=== PATIENT | male | born 1950 | race Hispanic/Latino ===

== ENCOUNTER 2018-05-01 22:46 | Emergency (ER) | payer OTHER ==
[~2018-05-01] VITALS: Ht 165.1 cm; Wt 97.5 kg
[~2018-05-01 22:46] MED LIST: CYCLOBENZAPRINE10 M1 PO; PERCOCET 5-3251 EACH PO; ROBITUSSIN W/CO10 ML PO; ZITHROMAX Z-PA250 M1 PO
--- NOTE | 2018-05-01 23:36 | ED MVC/FALL/TRAUMA COMPLAINT ---
History of Present Illness General Chief Complaint: Fall Stated Complaint: BIBA WITH A FALL Source: patient, family, EMS Exam Limitations: no limitations Vital Signs & Intake/Output Vital Signs & Intake/Output Vital Signs Date Time Temp Pulse Resp B/P B/P Pulse O2 O2 Flow FiO2 Mean Ox Delivery Rate 05/02 0259 98.2 76 16 135/80 98 Room Air 05/02 0106 98.0 78 16 138/84 97 Room Air 05/01 2320 98.2 76 19 133/82 99 Room Air 05/01 2301 Room Air ED Intake and Output 05/02 0000 05/01 1200 Intake Total Output Total Balance Patient 215 lb Weight Weight Reported by Patient Measurement Method Allergies Coded Allergies: No Known Allergies (02/09/18) Reconcile Medications Azithromycin (Zithromax Z-Ab) 250 MG CAP 1 DP PO AD bronchitis 2 the first day followed by 1 for days 2-5 Cyclobenzaprine HCl 10 MG TABLET 1 TAB PO Q8P PAIN OR SPASM Oxycodone HCl/Acetaminophen (Percocet 5-325 MG Tablet) 5 MG-325 MG TABLET 1-2 TAB PO Q6P PRN PAIN Robitussin AC (Guaifenesin-Codeine Syrup) 10 ML UDC 10 ML PO Q6HR PRN COUGH Triage Note: biba s/p mechanical fall off of 2nd step on ladder. denies headstrike. does not take bloodthinners. c/o of R lower back pain - worse with movement. slight bruising/redness noted to R lower back. Triage Nurses Notes Reviewed? yes Onset: Abrupt Duration: minute(s):, constant, changing over time, continues in ED, getting worse Timing: single episode today Severity: severe Injuries/Fall Location: back Method of Injury: fall Loss of Consciousness: no loss of consciousness HPI: Patient presents for evaluation of injury sustained status post fall while at home prior to arrival. Patient was on a step stool was approximately 2 steps or roughly 3 feet up off the ground when he fell while changing a light bulb. He fell onto concrete stairs. He presents complaining of a constant sharp right flank pain that radiates up the back gets worse with palpation and movement. He denies neck pain. Past History Travel History Traveled to [place] past 21 day No Medical History Any Pertinent Medical History? 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 No Review of Systems Review of Systems Constitutional: Reports: no symptoms. Eyes: Reports: no symptoms. Ears, Nose, Throat, Mouth: Reports: no symptoms. Respiratory: Reports: no symptoms. Cardiovascular: Reports: no symptoms. Gastrointestinal/Abdominal: Reports: no symptoms. Genitourinary: Reports: no symptoms. Musculoskeletal: Reports: see HPI. Skin: Reports: no symptoms. Neurological/Psychological: Reports: no symptoms. All Other Systems: Reviewed and Negative Physical Exam Physical Exam General Appearance: see below Comments: Gen.: Well-nourished, well-developed, no acute respiratory distress. Head: Normocephalic, atraumatic, nontender. Eyes: Normal inspection bilaterally, sandeep, EOMI Ears: Normal inspection bilaterally Nose: Normal inspection Throat/mouth : Moist mucosa Neck: Supple, full range of motion, no goiter, nontender Heart: Regular rate and rhythm, no murmurs rubs or gallops Lungs: Clear to auscultation bilaterally with normal air entry Chest: Nontender Back: Decreased range of motion secondary to right flank pain, tenderness over the right paraspinal musculature with mild redness Abdomen: Soft, nontender, nondistended, normal bowel sounds Pelvis: Stable and nontender Extremities: Normal range of motion grossly, no tenderness, no cyanosis clubbing or edema Neurologic: Cranial nerves grossly intact, speech is clear Skin: warm and dry and without ecchymoses or soft tissue swelling or erythema Psychiatric: Calm, cooperative, no apparent delusions or hallucinations Core Measures ACS in differential dx? No CVA/TIA Diagnosis No Sepsis Present: No Sepsis Focused Exam Completed? No Progress Differential Diagnosis: abd injury, C/T/L spine injury, ext injury, pelvis injury, spinal cord injury Plan of Care: Orders Procedure Date/time Status URINALYSIS 05/01 2335 Active TROPONIN LEVEL 05/01 2335 Complete PROTHROMBIN TIME 05/01 2335 Complete LIPASE 05/01 2335 Complete COMPREHENSIVE METABOLIC PANEL 05/01 2335 Complete CBC WITHOUT DIFFERENTIAL 05/01 2335 Complete EKG 05/01 2335 Active Laboratory Tests 05/01/185: Anion Gap 7, Estimated GFR > 60, BUN/Creatinine Ratio 18.2, Glucose 159 H, Calcium 9.9, Total Bilirubin 0.6, AST 49, ALT 74 H, Alkaline Phosphatase 59, Troponin I < 0.01, Total Protein 7.3, Albumin 4.6, Globulin 2.7, Albumin/ Globulin Ratio 1.7, Lipase 52, PT 12.9 H, INR 1.18 H, CBC w Diff NO MAN DIFF REQ, RBC 5.50, MCV 87.9, MCH 30.1, MCHC 34.2, RDW 13.7, MPV 8.7, Gran % 83.7 H, Lymphocytes % 10.4 L, Monocytes % 3.6, Eosinophils % 1.1, Basophils % 1.2, Absolute Granulocytes 7.3 H, Absolute Lymphocytes 0.9 L, Absolute Monocytes 0.3, Absolute Eosinophils 0.1, Absolute Basophils 0.1 Diagnostic Imaging: Discussed w/RAD: CT Scan. Radiology Impression: PATIENT: YEVGENIY SÁNCHEZ PRESENT AGE: 67 PATIENT ACCOUNT NO: [id number] : 52 LOCATION: [facility] ORDERING PHYSICIAN: Schuyler Mcfadden MD SERVICE DATE: 05/01/18 EXAM TYPE : CAT - CT ABD & PELVIS W IV CONTRAST; CT CHEST W IV CONTRAST EXAMINATION: CONTRAST-ENHANCED CT OF THE CHEST; CONTRAST-ENHANCED CT OF THE ABDOMEN AND PELVIS INDICATION: 1Trauma, fall with right flank pain COMPARISON: None TECHNIQUE: 95 mL Optiray 320 IV contrast was utilized. Multidetector helical imaging was performed through the chest, abdomen, and pelvis. Coronal and sagittal reformatted images were created at the technologist workstation. DLP: 1301.25 mGy-cm FINDINGS: Chest: There are dependent and curvilinear regions of opacity bilaterally, favoring atelectasis. No pneumothorax or pleural effusions. The visualized thyroid gland is unremarkable. There are subcentimeter mediastinal lymph nodes within the range of normal variation. Cardiac size is within normal limits; no pericardial effusion. There is mild scattered calcification along the aorta. No axillary lymphadenopathy is present. There are posterior right 10th and 11th rib fractures. There is a right L1 transverse process fracture. Abdomen/Pelvis: The liver is homogeneous in attenuation without intrahepatic biliary ductal dilatation. There is a subcentimeter hypoattenuating lesion in the left hepatic lobe. Cholelithiasis is noted. There is a nonspecific subcentimeter hypoattenuating lesion in the spleen anteriorly. The pancreas and adrenal glands are within normal limits. Bilateral nephrograms are symmetric. There are several small hypoattenuating renal lesions bilaterally , most consistent with cysts. There is a punctate left lower pole renal calculus. No hydronephrosis. No obstructing ureteral calculi are present. The urinary bladder is unremarkable. The prostate and seminal vesicles are unremarkable. Colonic diverticulosis is noted. The small and large bowel are otherwise unremarkable without evidence of obstruction or pericolonic inflammatory change. No free fluid or free air is present. The vascular structures are unremarkable. No retroperitoneal or pelvic lymphadenopathy is seen. Patient is status post ventral hernia repair. Degenerative changes are noted in the spine. There is partial sclerosis of the bilateral sacroiliac joints. There are sclerotic foci in the left sacrum and right acetabulum which may reflect bone islands. IMPRESSION: 1. Posterior right 10th and 11th rib fractures. 2. Right L1 transverse process fracture. 3. Cholelithiasis. DICTATED BY: Mark Loco MD DATE/TIME DICTATED:05/02/18111 [employer]:[facility] DATE/TIME TRANSCRIBED:05/02/18111 CONFIDENTIAL, DO NOT COPY WITHOUT APPROPRIATE AUTHORIZATION. <Electronically signed in Other Vendor System> SIGNED BY: Mark Loco MD 05/02/18 0137 Comments: 05/02/2018 2:46:44 AM I have updated on his yevgeniy and family on test results. I will medicate him with PO narcotics and anti-inflammatories. If his pain remains well controlled I feel he can be treated as an outpatient. 05/02/2018 4:20:35 AM although he is still experiencing pain with movement, Yevgeniy is getting better. He is now ambulatory and appears stable on his feet. Departure Departure Disposition: HOME OR SELF CARE Condition: Stable Clinical Impression Primary Impression: Rib fractures Secondary Impressions: Fall, Lumbar transverse process fracture Referrals: Zoë GARCIA,Tristian Spencer (PCP/Family) Additional Instructions: Diclofenac as needed for rib or back pain. Orphenadrine as needed for muscle spasms. Percocet as needed for pain. Ice to any areas of swelling. Avoid exertion or heavy lifting. Follow-up with your primary care doctor this week for reevaluation. Contact Dr. Pagan, neurosurgery, to monitor your vertebral fracture. Return if any concerns or sudden worsening. Please note that there might be incidental findings in your evaluation that are unrelated to the current emergency department visit. Please notify your primary care doctor about this emergency department visit in order to obtain and review all of the testing performed so that these incidental findings can be monitored as needed. If you had an x-ray performed, please understand that some fractures or other findings may not be seen on the initial set of x-rays. If your symptoms persist you might need a repeat set of x-rays to check for such a fracture. If you had a laceration evaluated, please understand that foreign bodies such as glass or wood may not be visible to the naked eye or on plain x-rays. If the wound becomes red, swollen, increasingly more painful or if there is any drainage from the wound, please have it reevaluated by a physician for the possibility of a retained foreign body. If you're unable to follow up as outlined in the discharge instructions please return to the emergency department. Thank you for choosing the [facility] Emergency Department for your care. It was a pleasure to serve you today. Schuyler Mcfadden M.D. [facility] Departure Forms: Customer Survey General Discharge Information Prescriptions: Current Visit Scripts Diclofenac Sodium 1 TAB PO BID PRN PAIN #14 TAB Orphenadrine Citrate 1 TAB PO BIDP PRN muscle spasms #14 TAB Oxycodone HCl/Acetaminophen (Percocet 5-325 MG Tablet) 1-2 TAB PO Q6P PRN pain #20 TAB
[2018-05-02 00:09] LABS: ABSOLUTE BASOPHIL COUNT 0.1 /CUMM (0.0-0.2); ABSOLUTE EOSINOPHIL COUNT 0.1 /CUMM (0.0-0.7); ABSOLUTE GRANULOCYTE CT 7.3 /CUMM (1.4-6.5); ABSOLUTE LYMPH COUNT 0.9 /CUMM (1.2-3.4); ABSOLUTE MONOCYTE COUNT 0.3 /CUMM (0.10-0.60); BASOPHIL % 1.2 % (0.0-2.0); EOSINOPHIL % 1.1 % (0-5); GRANULOCYTE % 83.7 % (42.2-75.2); HEMATOCRIT 48.4 % (42-52); MEAN CORPUSCULAR HGB 30.1 PG (27.0-31.0); MEAN CORPUSCULAR HGB CONC 34.2 G/DL (33.0-37.0); MEAN CORPUSCULAR VOLUME 87.9 FL (80.0-94.0); MEAN PLATELET VOLUME 8.7 FL (7.4-10.4); PLATELET COUNT 219 /CUMM (130-400); RBC DISTRIBUTION WIDTH 13.7 % (11.5-14.5)
[2018-05-02 00:30] LABS: PT 12.9 SEC (9.4-12.5)
[2018-05-02 00:43] LABS: WHITE BLOOD CELL COUNT 8.7 /CUMM (4.8-10.8)
--- NOTE | 2018-05-02 01:37 | CT SCAN REPORT ---
EXAMINATION: CONTRAST-ENHANCED CT OF THE CHEST; CONTRAST-ENHANCED CT OF THE ABDOMEN AND PELVIS INDICATION: 1Trauma, fall with right flank pain COMPARISON: None TECHNIQUE: 95 mL Optiray 320 IV contrast was utilized. Multidetector helical imaging was performed through the chest, abdomen, and pelvis. Coronal and sagittal reformatted images were created at the technologist workstation. DLP: 1301.25 mGy-cm FINDINGS: Chest: There are dependent and curvilinear regions of opacity bilaterally, favoring atelectasis. No pneumothorax or pleural effusions. The visualized thyroid gland is unremarkable. There are subcentimeter mediastinal lymph nodes within the range of normal variation. Cardiac size is within normal limits; no pericardial effusion. There is mild scattered calcification along the aorta. No axillary lymphadenopathy is present. There are posterior right 10th and 11th rib fractures. There is a right L1 transverse process fracture. Abdomen/Pelvis: The liver is homogeneous in attenuation without intrahepatic biliary ductal dilatation. There is a subcentimeter hypoattenuating lesion in the left hepatic lobe. Cholelithiasis is noted. There is a nonspecific subcentimeter hypoattenuating lesion in the spleen anteriorly. The pancreas and adrenal glands are within normal limits. Bilateral nephrograms are symmetric. There are several small hypoattenuating renal lesions bilaterally, most consistent with cysts. There is a punctate left lower pole renal calculus. No hydronephrosis. No obstructing ureteral calculi are present. The urinary bladder is unremarkable. The prostate and seminal vesicles are unremarkable. Colonic diverticulosis is noted. The small and large bowel are otherwise unremarkable without evidence of obstruction or pericolonic inflammatory change. No free fluid or free air is present. The vascular structures are unremarkable. No retroperitoneal or pelvic lymphadenopathy is seen. Patient is status post ventral hernia repair. Degenerative changes are noted in the spine. There is partial sclerosis of the bilateral sacroiliac joints. There are sclerotic foci in the left sacrum and right acetabulum which may reflect bone islands. IMPRESSION: 1. Posterior right 10th and 11th rib fractures. 2. Right L1 transverse process fracture. 3. Cholelithiasis.
[2018-05-02] MEDS ORDERED: ORPHENADRINE C100 MG PO (04:32)
[2018-05-02] MEDS ORDERED: PERCOCET 5-3251 EACH PO (04:32)
[2018-05-02] MEDS ORDERED: DICLOFENAC SODI75 M2 PO (04:32)
[2018-05-02 04:43] VITALS: BP 138/82
== END 2018-05-02 04:45 ==
LOC: ERH 22:46
PROVIDERS: Emergency Medicine
DX: S22.41XA Multiple fractures of ribs, right side, initial encounter for closed fracture (principal); S32.019A Unspecified fracture of first lumbar vertebra, initial encounter for closed fracture; W11.XXXA Fall on and from ladder, initial encounter; Y92.9 Unspecified place or not applicable; Y93.89 Activity, other specified
CPT/HCPCS: 74177; 93005; 93010; 96365; 96375; J0131